=== PATIENT | female | born 1945 | race Caucasian/White ===

== ENCOUNTER 2021-08-27 16:22 | Emergency (ER) | payer OTHER ==
[~2021-08-27] VITALS: Ht 167.6 cm; Wt 88.5 kg
[2021-08-27 16:27] VITALS: BP_SYST 109
[2021-08-27] MEDS ORDERED: SIMV-46 PO (16:37)
[2021-08-27] MEDS ORDERED: PARO-63 PO (16:37)
[2021-08-27] MEDS ORDERED: GLIP10TA11 PO (16:37)
[2021-08-27] MEDS ORDERED: ATEN50TA PO (16:37)
[2021-08-27] MEDS ORDERED: METF-518 PO (16:37)
[2021-08-27] MEDS ORDERED: LOSA25TA3 PO (16:37)
[2021-08-27] MEDS ORDERED: ALLO100T PO (16:37)
[2021-08-27] MEDS ORDERED: INSU100V9 SQ (16:37)
[2021-08-27 18:07] LABS: BASOPHILS # (AUTO) 0.1 K/uL (0.0-0.2); BASOPHILS % (AUTO) 1.1 % (0.0-2.0); EOSINOPHILS # (AUTO) 0.1 K/uL (0.0-0.4); EOSINOPHILS % (AUTO) 1.1 % (0.0-4.0); HEMATOCRIT 38.8 % (36-48); HEMOGLOBIN 13.1 g/dL (12.0-16.0); LYMPHOCYTES # (AUTO) 2.3 K/uL (1.0-5.5); LYMPHOCYTES % (AUTO) 28.9 % (20.5-51.5); MEAN CORPUSCULAR HEMOGLOBIN 33 pg (27-31); MEAN CORPUSCULAR HGB CONC 34 % (32-36); MEAN CORPUSCULAR VOLUME 98 fL (79.0-98.0); MONOCYTES # (AUTO) 0.6 K/uL (0.0-1.0); MONOCYTES % (AUTO) 7.2 % (1.7-9.3); NEUTROPHILS % (AUTO) 61.7 % (40.0-70.0); PLATELET COUNT (AUTO) 331 K/uL (130-430); RED BLOOD CELL COUNT(AUTO) 3.96 MIL/uL (4.2-6.2); RED CELL DISTRIBUTION WIDTH 14.2 % (9.0-15.0); WHITE BLOOD COUNT (AUTO) 8.1 K/uL (4.8-10.8)
[2021-08-27 19:07] LABS: ANION GAP 12 (5-15); CALCIUM 9.3 mg/dL (8.4-11.0); CHLORIDE 103 mmol/L (98-107); CREATININE 1.34 mg/dL (0.55-1.30); GLUCOSE 126 mg/dL (70-99); POTASSIUM 4.4 mmol/L (3.5-5.1); SODIUM SERUM 138 mmol/L (136-145); UREA NITROGEN, BLOOD 35 mg/dL (8-21)
[2021-08-27 19:08] LABS: ALANINE AMINOTRANSFERASE 31 U/L (12-78); ALBUMIN 4.1 g/dL (3.4-4.8); ASPARTATE AMINOTRANSFERASE 19 U/L (10-37); TOTAL BILIRUBIN 0.3 mg/dL (0.0-1.0)
--- NOTE | 2021-08-27 20:20 | NUR ---
call pt name in the wr.No answer.
--- NOTE | 2021-08-27 20:25 | NUR ---
call pt name in the wr.No answer.
--- NOTE | 2021-08-27 20:30 | NUR ---
call pt name in the wr.No answer.
== END 2021-08-27 20:30 | disposition left against medical advice (07) ==
LOC: SED 16:22
DX: E16.2 Hypoglycemia, unspecified (principal); Z53.21 Procedure and treatment not carried out due to patient leaving prior to being seen by health care provider
CPT/HCPCS: 36415; 80053; 85025